=== PATIENT | male | born 1950 | race Native Hawaiian/Other Pacific Islander ===

== ENCOUNTER 2018-09-14 08:42 | Inpatient (IN) | payer MEDICARE ==
[2018-09-14 08:49] VITALS: BMI 21.9
--- NOTE | 2018-09-14 12:18 | RAD ---
Date of service: 09/14/2018 PROCEDURE: CHEST RADIOGRAPH, 1 VIEW HISTORY: respiratory failure COMPARISON: None available. FINDINGS: LUNGS: Clear. PLEURA: No pneumothorax or pleural fluid seen. CARDIOVASCULAR: No aortic atherosclerotic calcification present. Normal. OSSEOUS STRUCTURES: No significant abnormalities. VISUALIZED UPPER ABDOMEN: Normal. OTHER FINDINGS: Satisfactory position of tracheostomy device. IMPRESSION: No active disease.
[2018-09-14 12:41] LABS: BASO % 0.2 % (0.0-2.0); EOS # 0.1 K/uL (0.0-0.7); HEMOGLOBIN 11.7 g/dL (12.0-18.0); LYMPH # 2.3 K/uL (1.0-4.3); LYMPH % 28.7 % (20.0-40.0); MEAN CELL VOLUME 77.1 fl (80.0-94.0); MEAN CORPUSCULAR HEMOGLOBIN 24.2 pg (27.0-31.0); MEAN CORPUSCULAR HGB CONC 31.3 g/dL (33.0-37.0); MEAN PLATELET VOLUME 8.2 fl (7.2-11.7); MONO # 0.5 K/uL (0.0-0.8); MONO % 6.7 % (0.0-10.0); NEUT # 5.1 K/uL (1.8-7.0); NEUT % 63.4 % (50.0-75.0); NRBC % 0.1 % (0.0-0.0); RBC 4.86 Mil/uL (4.40-5.90); RED CELL DISTRIBUTION WIDTH 14.1 % (11.5-14.5); WHITE BLOOD COUNT 8.1 K/uL (4.8-10.8)
[2018-09-14 13:24] LABS: PROTHROMBIN TIME 11.9 Seconds (9.8-13.1)
[2018-09-14 13:27] LABS: PARTIAL THROMBOPLASTIN TIME 36.3 Seconds (25.6-37.1)
--- NOTE | 2018-09-14 13:28 | ED PDOC ---
HPI: General Adult Time Seen by Provider: 09/14/18 09:06 Chief Complaint (Nursing): GI Problem Chief Complaint (Provider): GI Problem History Per: Patient History/Exam Limitations: no limitations Onset/Duration Of Symptoms: Days (approximately x1 week) Additional Complaint(s): Phan Amaral is a 68 year old male with a past medical history of guillaine-barre syndrome, tracheostomy, and PEG tube, who presents to the emergency department complaining of ongoing problems with trachea and PEG tube. It is unclear how long it has been going on, approximately x1 week. Patient states he noticed a smell from his trachea and developed a dry cough. Patient did not note any discharge or bleeding from his trachea and further states he is no longer uses his PEG tube and that it will be removed. He states that he developed paralysis last year while on vacation in the [facility]. Patient was diagnosed guillain barre syndrome and has paralysis in his arms and legs. Patient denies any fever, chest pain, or difficulty breathing. PMD: Dr. Anguiano and Dr. Temple Past Medical History Reviewed: Historical Data, Nursing Documentation, Vital Signs Vital Signs: Last Vital Signs Temp 97.7 F 09/14/18 08:49 Pulse 92 H 09/14/18 08:49 Resp 18 09/14/18 08:49 BP 108/74 09/14/18 08:49 Pulse Ox 97 09/14/18 08:49 - Medical History Other PMH: Guillain Poulan syndrome - Surgical History Other surgeries: Peg Tube. Tracheostomy - Family History Family History: States: Unknown Family Hx - Immunization History Hx Tetanus Toxoid Vaccination: No Hx Influenza Vaccination: No Hx Pneumococcal Vaccination: No - Home Medications Home Medications: Ambulatory Orders Medication Instructions Recorded Famotidine [Pepcid] 20 mg PO HS 09/14/18 Finasteride [Proscar] 5 mg PO DAILY 09/14/18 Icosapent Ethyl [Vascepa] 1 gm PO DAILY 09/14/18 Multivitamin [Multi-Vitamin Daily] 1 tab PO HS 09/14/18 RX: Ferrous Sulfate [Feosol] 325 mg PO HS 09/14/18 RX: Gabapentin [Neurontin] 100 mg PO Q12 09/14/18 RX: traZODone [Desyrel] 50 mg PO HS 09/14/18 Saccharomyces Boulardi [Florastor] 250 mg PO DAILY 09/14/18 - Allergies Allergies/Adverse Reactions: Allergies Allergy/AdvReac Type Severity Reaction Status Date / Time vancomycin Allergy ANAPHYLAXIS Verified 09/14/18 09:03 Review of Systems ROS Statement: Except As Marked, All Systems Reviewed And Found Negative Constitutional: Negative for: Fever Cardiovascular: Negative for: Chest Pain Respiratory: Positive for: Cough. Negative for: Shortness of Breath Physical Exam - Reviewed Nursing Documentation Reviewed: Yes Vital Signs Reviewed: Yes - Physical Exam Appears: Positive for: Non-toxic, No Acute Distress Head Exam: Positive for: ATRAUMATIC, NORMOCEPHALIC ENT: Positive for: Other (has tracheostomy). Negative for: Pharyngeal Erythema (bleeding or disharge) Cardiovascular/Chest: Positive for: Regular Rate, Rhythm. Negative for: Murmur Respiratory: Positive for: Normal Breath Sounds. Negative for: Wheezing, Respiratory Distress Gastrointestinal/Abdominal: Positive for: Normal Exam, Soft, Other (Peg tube in place). Negative for: Tenderness Extremity: Positive for: Normal ROM Neurologic/Psych: Positive for: Alert, Oriented (x3) - Laboratory Results Result Diagrams: 09/15/18 04:20 09/15/18 04:20 - ECG O2 Sat by Pulse Oximetry: 97 (RA) Pulse Ox Interpretation: Normal Medical Decision Making Medical Decision Making: Impression: Malfunction of Trach and Peg tube Plan: 11:20 Call Gastroenterology and Pulmonology 11:32 --EKG --CMP --Prealbumin --CBC with differential --PTT --PT --Chest X-ray 12:14 Chest X-ray FINDINGS: LUNGS: Clear. PLEURA: No pneumothorax or pleural fluid seen. CARDIOVASCULAR: No aortic atherosclerotic calcification present. Normal. OSSEOUS STRUCTURES: No significant abnormalities. VISUALIZED UPPER ABDOMEN: Normal. OTHER FINDINGS: Satisfactory position of tracheostomy device. IMPRESSION: No active disease. 12:27 --Admit to Hospital Case discussed with Dr. Anguiano for admission for trach and peg tube evaluation. He requested Dr. Oziel Brantley for pulmonology and Dr. Yan for GI. 12:51 --CBC with differential 13:01 --PTT --PT Scribe Attestation: Documented by Len Hopson, acting as a scribe for Maryana Landrum MD. Provider Scribe Attestation: All medical record entries made by the Scribe were at my direction and personally dictated by me. I have reviewed the chart and agree that the record accurately reflects my personal performance of the history, physical exam, medical decision making, and the department course for this patient. I have also personally directed, reviewed, and agree with the discharge instructions and disposition. Disposition - Clinical Impression Clinical Impression: Tracheostomy malfunction, PEG tube malfunction - Patient ED Disposition Is Patient to be Admitted: Yes Discussed With : Kelton Anguiano Doctor Will See Patient In The: ED Counseled Patient/Family Regarding: Studies Performed, Diagnosis - Disposition Disposition Time: 12:20 Condition: FAIR - Pt Status Changed To: Hospital Disposition Of: Inpatient - Admit Certification Admit to Inpatient:: After my assessment, the patient will require hospitalization for at least two midnights. This is because of the severity of symptoms shown, intensity of services needed, and/or the medical risk in this patient being treated as an outpatient. - POA Present On Arrival: None
[2018-09-14 13:46] LABS: ALB/GLOB RATIO 1.1 (1.0-2.1); ALBUMIN 4.3 g/dL (3.5-5.0); ALT/SGPT 34 U/L (21-72); AST/SGOT 36 U/L (17-59); BLOOD UREA NITROGEN 20 mg/dl (9-20); CALCIUM 9.4 mg/dL (8.4-10.2); GFR NON-AFRICAN AMERICAN > 60
--- NOTE | 2018-09-14 14:11 | CP.PCM.CON ---
History of Present Illness - History of Present Illness History of Present Illness: Gastroenterology Consult note- Dr. Yan 68M pmhx significant for Guillain barre syndrome s/p Trach and PEG in the [facility] September of 2017. GI was consulted for evaluation and removal of PEG tube. Patient is able to eat and swallow on his own. PEG tube has not been used since early July 2018. Family members , and daughter at bedside, patient able to provide HPI. Denies: fevers, chills, nausea, vomiting, diarrhea, chest pain 12 Pt ROS conducted, negative otherwise stated above Review of Systems - Review of Systems All systems: reviewed and no additional remarkable complaints except - Constitutional Constitutional: As Per HPI Past Patient History - Past Social History Smoking Status: Smoker Currrent Status Unknown - NEUROLOGICAL Other/Comment: guillaine-barre syndrome - PSYCHIATRIC Hx Substance Use: No - SURGICAL HISTORY Other/Comment: Tracheostomy. PEG tube insertion - ANESTHESIA Hx Anesthesia: Yes Hx Anesthesia Reactions: No Meds Allergies/Adverse Reactions: Allergies Allergy/AdvReac Type Severity Reaction Status Date / Time vancomycin Allergy ANAPHYLAXIS Verified 09/14/18 09:03 Physical Exam - Constitutional Appears: Non-toxic, No Acute Distress - Head Exam Head Exam: ATRAUMATIC - Eye Exam Eye Exam: EOMI. absent: Scleral icterus - ENT Exam ENT Exam: Mucous Membranes Moist - Neck Exam Additional comments: Trach in place - Respiratory Exam Respiratory Exam: NORMAL BREATHING PATTERN. absent: Accessory Muscle Use, Respiratory Distress Additional comments: Trach in place. on RA - Cardiovascular Exam Cardiovascular Exam: +S1, +S2. absent: Bradycardia, Tachycardia - GI/Abdominal Exam GI & Abdominal Exam: Soft. absent: Distended, Firm, Guarding, Hernia, Rigid, Tenderness Additional comments: PEG tube in place. Dual lumen. No erythema do discharge around Tube insertion site - Extremities Exam Extremities exam: Negative for: calf tenderness - Neurological Exam Neurological exam: Alert, Oriented x3 - Skin Skin Exam: Intact, Warm Results - Vital Signs Recent Vital Signs: Last Vital Signs Temp 97.7 F 09/14/18 08:49 Pulse 92 H 09/14/18 08:49 Resp 18 09/14/18 08:49 BP 108/74 09/14/18 08:49 Pulse Ox 97 09/14/18 13:38 - Labs Result Diagrams: 09/14/18 12:30 09/14/18 13:05 Labs: Laboratory Results - last 24 hr 09/14/18 09/14/18 09/14/18 12:30 13:05 13:05 WBC 8.1 RBC 4.86 Hgb 11.7 L Hct 37.5 MCV 77.1 L MCH 24.2 L MCHC 31.3 L RDW 14.1 Plt Count 280 MPV 8.2 Neut % (Auto) 63.4 Lymph % (Auto) 28.7 [place] % (Auto) 6.7 Eos % (Auto) 1.0 Baso % (Auto) 0.2 Neut # (Auto) 5.1 Lymph # (Auto) 2.3 [place] # (Auto) 0.5 Eos # (Auto) 0.1 Baso # (Auto) 0.0 PT 11.9 INR 1.0 APTT 36.3 Sodium 143 Potassium 4.3 Chloride 108 H Carbon Dioxide 26 Anion Gap 13 BUN 20 Creatinine 0.5 L Est GFR ( Amer) > 60 Est GFR (Non-Af Amer) > 60 Random Glucose 91 Calcium 9.4 Total Bilirubin 0.5 AST 36 ALT 34 Alkaline Phosphatase 52 Total Protein 8.0 Albumin 4.3 Globulin 3.7 Albumin/Globulin Ratio 1.1 Assessment & Plan - Assessment and Plan (Free Text) Assessment: 68M hx of Marlyn Emmanuel; evaluation for removal of PEG tube Has not used PEG tube in > 4 weeks. Tolerating PO intake Plan: - Plan to remove PEG tube Saturday 09/15 under direct visualization via endoscopy - NPO after MN - IVF - Endoscopy Tomorrow - Discussed w/ Dr. Yan GI attending PGY2
--- NOTE | 2018-09-14 16:07 | CARD ---
APPROVED REPORT Date of service: 09/14/2018 EKG Measurement Heart [id number] <Conclusion> Normal sinus rhythm Normal ECG
--- NOTE | 2018-09-14 22:00 | CP.PCM.CON ---
History of Present Illness - History of Present Illness History of Present Illness: 68 y/o male, with Trach and PEG 2/2 GB syndrome with continued residual weakness of ext, but better that initial crisis. Eats, and sent here to reverse PEG and be decanulated. Former 1 ppd for 30 years. Quit 15 years ago. Good cough reflex. VSS Head: neg adeno. Pos LEIGH. Heart RRR, Ns1s2 neg m Lungs some crackles at bases. Size 6 Trach. Abdo s, no pos bs Ext RUE edema. Neuro: Weakness of ext. A * O * 3. Patient already has a size 6 trach, and eats well. Would get ENT consult to scope and assess upper airway anatomy for granulation tissue, et cetera. IF WNL, would just remove the trach and observe. Should close up in weeks. S & S assessment as well. Oziel Brantley M.D., [facility] [phone] Past Patient History - Past Medical History & Family History Past Medical History?: Yes - Past Social History Smoking Status: Former Smoker - NEUROLOGICAL Other/Comment: guillaine-barre syndrome - HEMATOLOGICAL/ONCOLOGICAL Hx AIDS: No Hx Human Immunodeficiency Virus (HIV): No - MUSCULOSKELETAL/RHEUMATOLOGICAL Hx Falls: No - PSYCHIATRIC Hx Substance Use: No - SURGICAL HISTORY Other/Comment: Tracheostomy. PEG tube insertion - ANESTHESIA Hx Anesthesia: Yes Hx Anesthesia Reactions: No Meds Allergies/Adverse Reactions: Allergies Allergy/AdvReac Type Severity Reaction Status Date / Time vancomycin Allergy ANAPHYLAXIS Verified 09/14/18 09:03 - Medications Medications: Current Medications Famotidine (Pepcid) 20 mg PO HS [facility] Last Admin: 09/14/18 21:03 Dose: 20 mg Ferrous Sulfate (Feosol) 325 mg PO HS SUNDAY Last Admin: 09/14/18 21:03 Dose: 325 mg Finasteride (Proscar) 5 mg PO DAILY [facility] Gabapentin (Neurontin) 100 mg PO Q12 SUNDAY Last Admin: 09/14/18 21:03 Dose: 100 mg Home Med (Icosapent Ethyl [Vascepa]) 1 gm PO DAILY SUNDAY Potassium Chloride/Dextrose/Sod Cl (Potassium Chl 20 Meq In D5-Ns) 1,000 mls @ 60 mls/hr IV .[id number] [facility] Stop: 09/15/18 15:15 Dextrose/Lactated Ringer's (Dextrose 5%/Lactated Ringer's) 1,000 mls @ 80 mls/hr IV .[id number] SUNDAY Stop: 09/15/18 20:15 Multivitamins/Minerals (Therapeutic-M Tab) 1 tab PO DAILY SUNDAY Saccharomyces Boulardii (Florastor) 250 mg PO DAILY SUNDAY Trazodone HCl (Desyrel) 50 mg PO HS SUNDAY Last Admin: 09/14/18 21:03 Dose: 50 mg Results - Vital Signs Recent Vital Signs: Last Vital Signs Temp 98.8 F 09/14/18 20:00 Pulse 90 09/14/18 20:00 Resp 18 09/14/18 20:00 BP 123/75 09/14/18 20:00 Pulse Ox 98 09/14/18 20:00 - Labs Result Diagrams: 09/14/18 12:30 09/14/18 13:05 Labs: Laboratory Results - last 24 hr 09/14/18 09/14/18 09/14/18 12:30 12:30 13:05 WBC 8.1 RBC 4.86 Hgb 11.7 L Hct 37.5 MCV 77.1 L MCH 24.2 L MCHC 31.3 L RDW 14.1 Plt Count 280 MPV 8.2 Neut % (Auto) 63.4 Lymph % (Auto) 28.7 [place] % (Auto) 6.7 Eos % (Auto) 1.0 Baso % (Auto) 0.2 Neut # (Auto) 5.1 Lymph # (Auto) 2.3 [place] # (Auto) 0.5 Eos # (Auto) 0.1 Baso # (Auto) 0.0 PT INR APTT Sodium 143 Potassium 4.3 Chloride 108 H Carbon Dioxide 26 Anion Gap 13 BUN 20 Creatinine 0.5 L Est GFR ( Amer) > 60 Est GFR (Non-Af Amer) > 60 Random Glucose 91 Calcium 9.4 Total Bilirubin 0.5 AST 36 ALT 34 Alkaline Phosphatase 52 Total Protein 8.0 Albumin 4.3 Globulin 3.7 Albumin/Globulin Ratio 1.1 Prealbumin 22.2 09/14/18 13:05 WBC RBC Hgb Hct MCV MCH MCHC RDW Plt Count MPV Neut % (Auto) Lymph % (Auto) [place] % (Auto) Eos % (Auto) Baso % (Auto) Neut # (Auto) Lymph # (Auto) [place] # (Auto) Eos # (Auto) Baso # (Auto) PT 11.9 INR 1.0 APTT 36.3 Sodium Potassium Chloride Carbon Dioxide Anion Gap BUN Creatinine Est GFR ( Amer) Est GFR (Non-Af Amer) Random Glucose Calcium Total Bilirubin AST ALT Alkaline Phosphatase Total Protein Albumin Globulin Albumin/Globulin Ratio Prealbumin
[2018-09-14] MEDS ORDERED: Potassium Chl 20 mEq in D5-NS 1,000 ML IV SCH (23:00)
[2018-09-15] MEDS ORDERED: Dextrose 5%/Lactated Ringer's 1,000 ML IV SCH
[2018-09-15 05:43] LABS: BLOOD UREA NITROGEN 19 mg/dl (9-20); CALCIUM 9.2 mg/dL (8.4-10.2); GFR NON-AFRICAN AMERICAN > 60
[2018-09-15 05:52] LABS: BASO % 0.6 % (0.0-2.0); EOS # 0.1 K/uL (0.0-0.7); EOS % 2.1 % (0.0-4.0); HEMOGLOBIN 11.2 g/dL (12.0-18.0); LYMPH # 2.7 K/uL (1.0-4.3); LYMPH % 41.7 % (20.0-40.0); MEAN CELL VOLUME 77.6 fl (80.0-94.0); MEAN CORPUSCULAR HEMOGLOBIN 24.2 pg (27.0-31.0); MEAN CORPUSCULAR HGB CONC 31.2 g/dL (33.0-37.0); MEAN PLATELET VOLUME 8.1 fl (7.2-11.7); MONO # 0.5 K/uL (0.0-0.8); MONO % 8.3 % (0.0-10.0); NEUT # 3.1 K/uL (1.8-7.0); NEUT % 47.3 % (50.0-75.0); NRBC % 0.1 % (0.0-0.0); RBC 4.63 Mil/uL (4.40-5.90); RED CELL DISTRIBUTION WIDTH 14.2 % (11.5-14.5); WHITE BLOOD COUNT 6.6 K/uL (4.8-10.8)
[2018-09-15] MEDS ORDERED: Sodium Chloride 0.9% 250 ML IV ONE (08:10)
[2018-09-15] MEDS ORDERED: Etomidate 20 mg/10ml Inj IV ONE (08:17)
--- NOTE | 2018-09-15 09:46 | CP.PCM.HP ---
<Patricia Farris - Last Filed: 09/15/18 09:56> History of Present Illness - History of Present Illness History of Present Illness: 68 year old male with PMH of guillain-barre syndrome, tracheostomy, and PEG tube, presents to the ED complaining of ongoing problems with trachea and PEG tube approximately x1 week. Patient states he noticed a smell from his trachea and developed a dry cough. Patient did not note any discharge or bleeding from his trachea and further states he is no longer uses his PEG tube. He endorses eating by mouth w/o difficulty since July. He states that he developed paralysis last year while on vacation in the [facility]. Patient denies any fever, chest pain, sob, palpitations, or difficulty breathing. Also he denies recent nausea, vomiting, diarrhea, no urinary sx. PMD: non provided. Present on Admission - Present on Admission Any Indicators Present on Admission: No Review of Systems - Review of Systems All systems: reviewed and no additional remarkable complaints except (HPI) Past Patient History - Past Medical History & Family History Past Medical History?: Yes - Past Social History Smoking Status: Former Smoker - NEUROLOGICAL Other/Comment: guillaine-barre syndrome - HEMATOLOGICAL/ONCOLOGICAL Hx AIDS: No Hx Human Immunodeficiency Virus (HIV): No - MUSCULOSKELETAL/RHEUMATOLOGICAL Hx Falls: No - PSYCHIATRIC Hx Substance Use: No - SURGICAL HISTORY Other/Comment: Tracheostomy. PEG tube insertion - ANESTHESIA Hx Anesthesia: Yes Hx Anesthesia Reactions: No Meds Allergies/Adverse Reactions: Allergies Allergy/AdvReac Type Severity Reaction Status Date / Time vancomycin Allergy ANAPHYLAXIS Verified 09/14/18 09:03 Physical Exam - Constitutional Appears: No Acute Distress - Neck Exam Additional comments: Trachestomy with cannula in place. - Respiratory Exam Respiratory Exam: Clear to Auscultation Bilateral, NORMAL BREATHING PATTERN. absent: Decreased Breath Sounds - Cardiovascular Exam Cardiovascular Exam: REGULAR RHYTHM, +S1, +S2 - GI/Abdominal Exam GI & Abdominal Exam: Soft. absent: Distended, Tenderness Additional comments: PEG tube noted in place. - Extremities Exam Extremities exam: Negative for: calf tenderness, pedal edema - Neurological Exam Neurological exam: Alert, Oriented x3 Results - Vital Signs Recent Vital Signs: Last Vital Signs Temp 97.4 F L 09/15/18 08:57 Pulse 63 09/15/18 08:57 Resp 15 09/15/18 08:57 BP 103/68 11/20/18 08:57 Pulse Ox 98 09/15/18 08:57 - Labs Result Diagrams: 09/15/18 04:20 09/15/18 04:20 Labs: Laboratory Results - last 24 hr 09/14/18 09/14/18 09/14/18 12:30 12:30 13:05 WBC 8.1 RBC 4.86 Hgb 11.7 L Hct 37.5 MCV 77.1 L MCH 24.2 L MCHC 31.3 L RDW 14.1 Plt Count 280 MPV 8.2 Neut % (Auto) 63.4 Lymph % (Auto) 28.7 [place] % (Auto) 6.7 Eos % (Auto) 1.0 Baso % (Auto) 0.2 Neut # (Auto) 5.1 Lymph # (Auto) 2.3 [place] # (Auto) 0.5 Eos # (Auto) 0.1 Baso # (Auto) 0.0 PT INR APTT Sodium 143 Potassium 4.3 Chloride 108 H Carbon Dioxide 26 Anion Gap 13 BUN 20 Creatinine 0.5 L Est GFR ( Amer) > 60 Est GFR (Non-Af Amer) > 60 Random Glucose 91 Calcium 9.4 Total Bilirubin 0.5 AST 36 ALT 34 Alkaline Phosphatase 52 Total Protein 8.0 Albumin 4.3 Globulin 3.7 Albumin/Globulin Ratio 1.1 Prealbumin 22.2 09/14/18 09/15/18 09/15/18 13:05 04:20 04:20 WBC 6.6 RBC 4.63 Hgb 11.2 L Hct 36.0 MCV 77.6 L MCH 24.2 L MCHC 31.2 L RDW 14.2 Plt Count 257 MPV 8.1 Neut % (Auto) 47.3 L Lymph % (Auto) 41.7 H [place] % (Auto) 8.3 Eos % (Auto) 2.1 Baso % (Auto) 0.6 Neut # (Auto) 3.1 Lymph # (Auto) 2.7 [place] # (Auto) 0.5 Eos # (Auto) 0.1 Baso # (Auto) 0.0 PT 11.9 INR 1.0 APTT 36.3 Sodium 143 Potassium 4.1 Chloride 110 H Carbon Dioxide 24 Anion Gap 13 BUN 19 Creatinine 0.4 L Est GFR ( Amer) > 60 Est GFR (Non-Af Amer) > 60 Random Glucose 97 Calcium 9.2 Total Bilirubin AST ALT Alkaline Phosphatase Total Protein Albumin Globulin Albumin/Globulin Ratio Prealbumin Assessment & Plan - Assessment and Plan (Free Text) Assessment: 68 year old male with PMH of guillain-barre syndrome, tracheostomy, and PEG tube admitted for evaluation of tracheostomy malfunction. Evaluation for PEG tube removal. Plan: - stable, VSS - labs reviewed wnl - CXR: negative for active disease - GI consulted recommendations appreciated - for PEG tube removal under EGD today - Pulmonology consulted, input appreciated - ENT consulted, recommendations appreciated - home meds resumed - rest of plan as ordered <Kelton Anguiano - Last Filed: 09/16/18 06:01> Results - Vital Signs Recent Vital Signs: Last Vital Signs Temp 97.7 F 09/16/18 05:00 Pulse 63 09/16/18 05:00 Resp 18 09/16/18 05:00 BP 107/70 09/16/18 05:00 Pulse Ox 98 09/16/18 05:00 - Labs Result Diagrams: 09/15/18 04:20 09/15/18 04:20 Labs: Laboratory Results - last 24 hr 09/15/18 09/16/18 04:20 04:35 WBC 6.6 RBC 4.63 Hgb 11.2 L Hct 36.0 MCV 77.6 L MCH 24.2 L MCHC 31.2 L RDW 14.2 Plt Count 257 MPV 8.1 Neut % (Auto) 47.3 L Lymph % (Auto) 41.7 H [place] % (Auto) 8.3 Eos % (Auto) 2.1 Baso % (Auto) 0.6 Neut # (Auto) 3.1 Lymph # (Auto) 2.7 [place] # (Auto) 0.5 Eos # (Auto) 0.1 Baso # (Auto) 0.0 Iron 60 TIBC 255 % Saturation 23 Assessment & Plan - Assessment and Plan (Free Text) Plan: I was present during evaluation and discussed with Dr Kaleigh gifford plans of care and tx. Discussed with Dr Brantley re :plans. Kelton Anguiano M.D.
--- NOTE | 2018-09-15 11:55 | CP.PCM.PN ---
Subjective - Date & Time of Evaluation Date of Evaluation: 09/15/18 Time of Evaluation: 11:53 - Subjective Subjective: GI progress note- Dr. Yan Patient seen and examined at bedside. Currently s/p upper endoscopy w/ removal of PEG under direct visualization. Patient tolerated procedure well. Dressing C/D/I. No strike through. Patient remains NPO untill 13:00 cleared for full liquid diet. No acute complaints at this time. Family at bedside. Denies n/v/f/c/cp/sob Objective - Vital Signs/Intake and Output Vital Signs (last 24 hours): Temp Pulse Resp BP Pulse Ox 97.4 F L 63 15 103/68 98 09/15/18 08:57 09/15/18 08:57 09/15/18 08:57 09/15/18 08:57 09/15/18 08:57 Intake and Output: 09/15/18 09/15/18 06:59 18:59 Intake Total 80 Balance 80 - Medications Medications: Current Medications Famotidine (Pepcid) 20 mg PO [facility] Last Admin: 09/14/18 21:03 Dose: 20 mg Ferrous Sulfate (Feosol) 325 mg PO HS [facility] Last Admin: 09/14/18 21:03 Dose: 325 mg Finasteride (Proscar) 5 mg PO DAILY [facility] Gabapentin (Neurontin) 100 mg PO Q12 [facility] Last Admin: 09/14/18 21:03 Dose: 100 mg Home Med (Icosapent Ethyl [Vascepa]) 1 gm PO DAILY [facility] Potassium Chloride/Dextrose/Sod Cl (Potassium Chl 20 Meq In D5-Ns) 1,000 mls @ 60 mls/hr IV .[id number] [facility] Stop: 09/15/18 15:15 Last Admin: 09/15/18 00:36 Dose: 60 mls/hr Dextrose/Lactated Ringer's (Dextrose 5%/Lactated Ringer's) 1,000 mls @ 80 mls/hr IV .[id number] [facility] Stop: 09/15/18 20:15 Multivitamins/Minerals (Therapeutic-M Tab) 1 tab PO DAILY [facility] Saccharomyces Boulardii (Florastor) 250 mg PO DAILY [facility] Trazodone HCl (Desyrel) 50 mg PO HS [facility] Last Admin: 09/14/18 21:03 Dose: 50 mg - Labs Labs: 09/15/18 04:20 09/15/18 04:20 PT 11.9 Seconds (9.8-13.1) 09/14/18 13:05 INR 1.0 09/14/18 13:05 APTT 36.3 Seconds (25.6-37.1) 09/14/18 13:05 - Constitutional Appears: Non-toxic, No Acute Distress - Head Exam Head Exam: ATRAUMATIC - Eye Exam Eye Exam: EOMI. absent: Scleral icterus - ENT Exam ENT Exam: Mucous Membranes Moist - Respiratory Exam Respiratory Exam: NORMAL BREATHING PATTERN. absent: Accessory Muscle Use, Respiratory Distress - Cardiovascular Exam Cardiovascular Exam: +S1, +S2. absent: Bradycardia, Tachycardia - GI/Abdominal Exam GI & Abdominal Exam: Soft. absent: Distended, Firm, Guarding, Rigid, Tenderness Additional comments: PEG removed today. Dressing C/D/I - Extremities Exam Extremities Exam: absent: Calf Tenderness - Neurological Exam Neurological Exam: Alert, Awake, Oriented x3 - Skin Skin Exam: Intact, Warm Assessment and Plan - Assessment and Plan (Free Text) Assessment: 68M w/ hx of Mauralan [place] s/p removal of PEG under endoscopic visualization POD#0 Plan: - can start full liquid diet at 13:00 today - regular diet tomorrow - monitor dressing site - discussed w/ Dr. Yan GI attending
[2018-09-15] MEDS: Multivitamin With Minerals Tab PO SCH (13:33)
[2018-09-15] MEDS: Saccharomyces Boulardi 250 mg Cap PO SCH (13:34)
[2018-09-15] MEDS: Omega-3-Acid Ethyl Esters 1 GM Cap PO SCH (20:35)
--- NOTE | 2018-09-15 21:44 | CP.PCM.PN ---
Subjective - Date & Time of Evaluation Date of Evaluation: 09/15/18 Time of Evaluation: 21:43 - Subjective Subjective: see below Objective - Vital Signs/Intake and Output Vital Signs (last 24 hours): Temp Pulse Resp BP Pulse Ox 98.8 F 71 18 114/69 97 09/15/18 20:32 09/15/18 20:32 09/15/18 20:32 09/15/18 20:32 09/15/18 21:07 Intake and Output: 09/15/18 09/16/18 18:59 06:59 Intake Total 80 Balance 80 - Medications Medications: Current Medications Famotidine (Pepcid) 20 mg PO HS [facility] Last Admin: 09/15/18 18:39 Dose: 20 mg Ferrous Sulfate (Feosol) 325 mg PO HS [facility] Last Admin: 09/15/18 18:39 Dose: 325 mg Finasteride (Proscar) 5 mg PO DAILY [facility] Last Admin: 09/15/18 13:33 Dose: 5 mg Gabapentin (Neurontin) 100 mg PO Q12 [facility] Last Admin: 09/15/18 18:39 Dose: 100 mg Multivitamins/Minerals (Therapeutic-M Tab) 1 tab PO DAILY [facility] Last Admin: 09/15/18 13:33 Dose: 1 tab Tnqzq-6-Bksi Ethyl Esters (Lovaza) 2 gm PO BID [facility] Last Admin: 09/15/18 20:35 Dose: 2 gm Saccharomyces Boulardii (Florastor) 250 mg PO DAILY [facility] Last Admin: 09/15/18 13:34 Dose: 250 mg Trazodone HCl (Desyrel) 50 mg PO [facility] Last Admin: 09/15/18 18:42 Dose: 50 mg - Labs Labs: 09/15/18 04:20 09/15/18 04:20 PT 11.9 Seconds (9.8-13.1) 09/14/18 13:05 INR 1.0 09/14/18 13:05 APTT 36.3 Seconds (25.6-37.1) 09/14/18 13:05 Assessment and Plan - Assessment and Plan (Free Text) Assessment: full note to follow briefly 68 y/o male with trach/peg due to guillan-barre syndrome. no longer vent dependent and breathing well on RA with Passy-Hiller valve for more than several months. he is here for decannulation. exam 6 shiley fenestrated tube secure with passy-umu valve. excellent voice. this was changed to a #4 Shiley CFS without difficulty. there is some stomal granulation (from the presence of the fenestrated tube). this was cauterized with agno3. cap placed excellent voice fiberoptic laryngoscopy: widely patent airway with normal vocal cord function place patient on continuous pulse ox overnight. uncap for sats <90%, SOB or need for suctioning through trach. this was all d/w and demonsrated to and nurse. if no events overnight, ok with me for discharge home tomorrow with #4 trach capped.
[2018-09-16 05:44] LABS: IRON 60 ug/dL (49-181)
[2018-09-16 05:53] LABS: % IRON SATURATION 23 % (20-55); TOTAL IRON BINDING CAPACITY 255 ug/dL (250-450)
--- NOTE | 2018-09-16 06:05 | CP.PCM.PN ---
Subjective - Date & Time of Evaluation Date of Evaluation: 09/15/18 Time of Evaluation: 16:00 - Subjective Subjective: patient remains stable Able to swallow. Has no fever CBC andCMP are normal, Had a discussion with Dr Brantley last night and suggested getting ENT. Called on Dr Rao to evaluate patient. Objective - Vital Signs/Intake and Output Vital Signs (last 24 hours): Temp Pulse Resp BP Pulse Ox 97.7 F 63 18 107/70 98 09/16/18 05:00 09/16/18 05:00 09/16/18 05:00 09/16/18 05:00 09/16/18 05:00 Intake and Output: 09/15/18 09/16/18 18:59 06:59 Intake Total 80 Balance 80 - Medications Medications: Current Medications Famotidine (Pepcid) 20 mg PO HS [facility] Last Admin: 09/16/18 00:00 Dose: Not Given Ferrous Sulfate (Feosol) 325 mg PO [facility] Last Admin: 09/16/18 00:01 Dose: Not Given Finasteride (Proscar) 5 mg PO DAILY [facility] Last Admin: 09/15/18 13:33 Dose: 5 mg Gabapentin (Neurontin) 100 mg PO Q12 [facility] Last Admin: 09/16/18 00:01 Dose: Not Given Multivitamins/Minerals (Therapeutic-M Tab) 1 tab PO DAILY [facility] Last Admin: 09/15/18 13:33 Dose: 1 tab Zvwmy-7-Sjxt Ethyl Esters (Lovaza) 2 gm PO BID [facility] Last Admin: 09/15/18 20:35 Dose: 2 gm Saccharomyces Boulardii (Florastor) 250 mg PO DAILY [facility] Last Admin: 09/15/18 13:34 Dose: 250 mg Trazodone HCl (Desyrel) 50 mg PO [facility] Last Admin: 09/16/18 00:01 Dose: Not Given - Labs Labs: 09/15/18 04:20 09/15/18 04:20 PT 11.9 Seconds (9.8-13.1) 09/14/18 13:05 INR 1.0 09/14/18 13:05 APTT 36.3 Seconds (25.6-37.1) 09/14/18 13:05 - Head Exam Head Exam: NORMAL INSPECTION - Eye Exam Eye Exam: Normal appearance - ENT Exam ENT Exam: Mucous Membranes Moist - Respiratory Exam Respiratory Exam: Clear to Ausculation Bilateral - Cardiovascular Exam Cardiovascular Exam: REGULAR RHYTHM - GI/Abdominal Exam GI & Abdominal Exam: Normal Bowel Sounds - Neurological Exam Neurological Exam: Awake, Oriented x3 Additional comments: decreased motor strenght on both upper and lower extremities can elevate upper nad lower extremities but noted significant decrease in tone a nd fine motor on both upper extremities Assessment and Plan (1) Guillain Ghotra syndrome Status: Acute (2) Gait abnormality Status: Acute (3) PEG tube malfunction Status: Acute (4) Tracheostomy malfunction Status: Acute - Assessment and Plan (Free Text) Plan: Cont meds start phys therapy ENT eval follow up with GI and pulmonary
[2018-09-16 07:50] VITALS: RESP 20
--- NOTE | 2018-09-16 09:12 | CP.PCM.PN ---
Subjective - Date & Time of Evaluation Date of Evaluation: 09/16/18 Time of Evaluation: 09:12 - Subjective Subjective: GI Progress note- Dr. Yan Patient seen and examined at bedside. s/p PEG removal under direct visualization. Patient tolerating FLD. Plan to start regular diet today. No new complaints at this time. Patient Trach downsized by ENT. Objective - Vital Signs/Intake and Output Vital Signs (last 24 hours): Temp Pulse Resp BP Pulse Ox 97.8 F 73 20 106/69 96 09/16/18 07:50 09/16/18 07:50 09/16/18 07:50 09/16/18 07:50 09/16/18 07:50 - Medications Medications: Current Medications Famotidine (Pepcid) 20 mg PO [facility] Last Admin: 09/16/18 00:00 Dose: Not Given Ferrous Sulfate (Feosol) 325 mg PO [facility] Last Admin: 09/16/18 00:01 Dose: Not Given Finasteride (Proscar) 5 mg PO DAILY [facility] Last Admin: 09/15/18 13:33 Dose: 5 mg Gabapentin (Neurontin) 100 mg PO Q12 [facility] Last Admin: 09/16/18 00:01 Dose: Not Given Multivitamins/Minerals (Therapeutic-M Tab) 1 tab PO DAILY [facility] Last Admin: 09/15/18 13:33 Dose: 1 tab Ropvg-0-Goqg Ethyl Esters (Lovaza) 2 gm PO BID [facility] Last Admin: 09/15/18 20:35 Dose: 2 gm Saccharomyces Boulardii (Florastor) 250 mg PO DAILY [facility] Last Admin: 09/15/18 13:34 Dose: 250 mg Trazodone HCl (Desyrel) 50 mg PO [facility] Last Admin: 09/16/18 00:01 Dose: Not Given - Labs Labs: 09/15/18 04:20 09/15/18 04:20 PT 11.9 Seconds (9.8-13.1) 09/14/18 13:05 INR 1.0 09/14/18 13:05 APTT 36.3 Seconds (25.6-37.1) 09/14/18 13:05 - Constitutional Appears: Non-toxic, No Acute Distress - Head Exam Head Exam: ATRAUMATIC - Eye Exam Eye Exam: Scleral icterus. absent: EOMI - ENT Exam ENT Exam: Mucous Membranes Moist - Respiratory Exam Respiratory Exam: NORMAL BREATHING PATTERN. absent: Accessory Muscle Use, Respiratory Distress - Cardiovascular Exam Cardiovascular Exam: +S1, +S2. absent: Bradycardia, Tachycardia - GI/Abdominal Exam GI & Abdominal Exam: Soft. absent: Distended, Firm, Guarding, Rigid, Tenderness Additional comments: Incision site well healed. no pus or erythema - Extremities Exam Extremities Exam: absent: Calf Tenderness - Neurological Exam Neurological Exam: Alert, Awake, Oriented x3 - Psychiatric Exam Psychiatric exam: Normal Affect - Skin Skin Exam: Intact, Warm Assessment and Plan - Assessment and Plan (Free Text) Assessment: 68M s/p PEG removal under direct visualization via endoscopy Plan: - resume regular diet - trach management per ENT - no further intervention per GI team - discussed w/ Dr. Yan GI attending [email or web address]
[2018-09-16] MEDS: Saccharomyces Boulardi 250 mg Cap PO SCH (09:56)
[2018-09-16] MEDS: Multivitamin With Minerals Tab PO SCH (09:56)
[2018-09-16] MEDS: Omega-3-Acid Ethyl Esters 1 GM Cap PO SCH (09:57)
[2018-09-16 13:13] VITALS: BP 110/70; PULSE 88; TEMP 98.7; O2SAT 97
--- NOTE | 2018-09-16 13:47 | CP.PCM.DIS ---
Provider - Provider Date of Admission: 09/14/18 11:19 Attending physician: Kelton Anguiano MD Time Spent in preparation of Discharge (in minutes): 36 Diagnosis - Discharge Diagnosis (1) Guillain Ghotra syndrome Status: Acute (2) Gait abnormality Status: Acute (3) PEG tube malfunction Status: Acute (4) Tracheostomy malfunction Status: Acute Hospital Course - Lab Results Lab Results: Most Recent Lab Values WBC 6.6 K/uL (4.8-10.8) 09/15/18 04:20 RBC 4.63 Mil/uL (4.40-5.90) 09/15/18 04:20 Hgb 11.2 g/dL (12.0-18.0) L 09/15/18 04:20 Hct 36.0 % (35.0-51.0) 09/15/18 04:20 MCV 77.6 fl (80.0-94.0) L 09/15/18 04:20 MCH 24.2 pg (27.0-31.0) L 09/15/18 04:20 MCHC 31.2 g/dL (33.0-37.0) L 09/15/18 04:20 RDW 14.2 % (11.5-14.5) 09/15/18 04:20 Plt Count 257 K/uL (130-400) 09/15/18 04:20 MPV 8.1 fl (7.2-11.7) 09/15/18 04:20 Neut % (Auto) 47.3 % (50.0-75.0) L 09/15/18 04:20 Lymph % (Auto) 41.7 % (20.0-40.0) H 09/15/18 04:20 [place] % (Auto) 8.3 % (0.0-10.0) 09/15/18 04:20 Eos % (Auto) 2.1 % (0.0-4.0) 09/15/18 04:20 Baso % (Auto) 0.6 % (0.0-2.0) 09/15/18 04:20 Neut # (Auto) 3.1 K/uL (1.8-7.0) 09/15/18 04:20 Lymph # (Auto) 2.7 K/uL (1.0-4.3) 09/15/18 04:20 [place] # (Auto) 0.5 K/uL (0.0-0.8) 09/15/18 04:20 Eos # (Auto) 0.1 K/uL (0.0-0.7) 09/15/18 04:20 Baso # (Auto) 0.0 K/uL (0.0-0.2) 09/15/18 04:20 PT 11.9 Seconds (9.8-13.1) 09/14/18 13:05 INR 1.0 09/14/18 13:05 APTT 36.3 Seconds (25.6-37.1) 09/14/18 13:05 Sodium 143 mmol/l (132-148) 09/15/18 04:20 Potassium 4.1 MMOL/L (3.6-5.0) 09/15/18 04:20 Chloride 110 mmol/L (98-107) H 09/15/18 04:20 Carbon Dioxide 24 mmol/L (22-30) 09/15/18 04:20 Anion Gap 13 (10-20) 09/15/18 04:20 BUN 19 mg/dl (9-20) 09/15/18 04:20 Creatinine 0.4 mg/dl (0.8-1.5) L 09/15/18 04:20 Est GFR ( Amer) > 60 09/15/18 04:20 Est GFR (Non-Af Amer) > 60 09/15/18 04:20 Random Glucose 97 mg/dL (75-110) 09/15/18 04:20 Calcium 9.2 mg/dL (8.4-10.2) 09/15/18 04:20 Iron 60 ug/dL (49-181) 09/16/18 04:35 TIBC 255 ug/dL (250-450) 09/16/18 04:35 % Saturation 23 % (20-55) 09/16/18 04:35 Ferritin 136.0 ng/Ml (17.9-464) 09/16/18 04:35 Total Bilirubin 0.5 mg/dl (0.2-1.3) 09/14/18 13:05 AST 36 U/L (17-59) 09/14/18 13:05 ALT 34 U/L (21-72) 09/14/18 13:05 Alkaline Phosphatase 52 U/L (38-126) 09/14/18 13:05 Total Protein 8.0 G/DL (6.3-8.2) 09/14/18 13:05 Albumin 4.3 g/dL (3.5-5.0) 09/14/18 13:05 Globulin 3.7 gm/dL (2.2-3.9) 09/14/18 13:05 Albumin/Globulin Ratio 1.1 (1.0-2.1) 09/14/18 13:05 Prealbumin 22.2 mg/dL (17.6-36.0) 09/14/18 12:30 - Hospital Course Hospital Course: 68 year old male with PMH of Guillain-Hawi syndrome, tracheostomy, and PEG tube who was admitted for evaluation of tracheostomy and PEG tube. He is no longer uses his PEG tube. He endorses eating by mouth w/o difficulty since July. Patient was evaluated by GI, Pulmonology and ENT during admission. All blood work and imaging were wnl. Peg tube was successfully removed under EGD and trachestomy cannula changed from size 6 to 4. Patient cleared for discharge, stable with instructions to f/u with PMD and ENT as outpatient. Discharge Exam - Head Exam Head Exam: NORMAL INSPECTION - Eye Exam Eye Exam: EOMI - ENT Exam Additional comments: Trachestomy cannula in place. - Respiratory Exam Respiratory Exam: Clear to PA & Lateral, NORMAL BREATHING PATTERN - Cardiovascular Exam Cardiovascular Exam: REGULAR RHYTHM, +S1, +S2 - GI/Abdominal Exam GI & Abdominal Exam: Normal Bowel Sounds, Soft. absent: Distended, Tenderness Additional comments: Incision site well healed, no tenderness, erythema or discharged appreciated - Neurological Exam Neurological exam: Alert, Oriented x3 - Skin Skin Exam: Dry, Warm Discharge Plan - Discharge Medications Prescriptions: Qgtph-[id number] Ethyl Esters 1 GM [Lovaza] 2 gm PO BID #30 sgl - Follow Up Plan Condition: FAIR Disposition: HOME/ ROUTINE Instructions: Tracheotomy (DC) Additional Instructions: follow up with pmd in 1 week Referrals: Kelton Anguiano MD [Family Provider] -
== END 2018-09-16 15:00 | disposition home or self-care (01) | DRG 394 ==
LOC: H.ER 08:42 → H.ERHOLD 11:19 → H.TEL 16:30
PROVIDERS: ADMIT Family Medicine; ATTEND Family Medicine
PROC: 0B21XFZ Change Tracheostomy Device in Trachea, External Approach (ICD-10-PCS; 2018-09-15)
PROC: 0BJ18ZZ Inspection of Trachea, Via Natural or Artificial Opening Endoscopic (ICD-10-PCS; 2018-09-15)
PROC: 0DP68UZ Removal of Feeding Device from Stomach, Via Natural or Artificial Opening Endoscopic (ICD-10-PCS; principal; 2018-09-15 09:30)
DX: Z43.1 Encounter for attention to gastrostomy (principal); G61.0 Guillain-Barre syndrome; Z87.891 Personal history of nicotine dependence; K44.9 Diaphragmatic hernia without obstruction or gangrene; Z88.1 Allergy status to other antibiotic agents; Z43.0 Encounter for attention to tracheostomy